=== PATIENT | female | born 1980 | race Caucasian/White ===

== ENCOUNTER 2020-07-24 14:25 | Emergency (ER) | payer MEDICAID ==
[~2020-07-24] VITALS: Ht 157.5 cm; Wt 72.0 kg
[2020-07-24] MEDS ORDERED: ACETAMINOPHEN WITH CODEINE 300/30MG TABLET PO ONE (14:45)
[2020-07-24 15:20] VITALS: BP 120/77
== END 2020-07-24 15:30 | disposition home or self-care (01) ==
LOC: ER 14:25
DX: R06.02 Shortness of breath (principal); R51 Headache
CPT/HCPCS: 71045; 99283

== ENCOUNTER 2020-07-25 12:29 | Inpatient (IN) | payer MEDICAID ==
[~2020-07-25] VITALS: Ht 142.2 cm; Wt 87.5 kg
[2020-07-25] MEDS ORDERED: ACETAMINOPHEN 325MG TABLET PO STA ×2 (13:01→14:56)
[2020-07-25] MEDS ORDERED: SODIUM CHLORIDE 0.9% 1,000 ML IV ONE (13:12)
[2020-07-25 14:29] LABS: BASOPHILS % 0.5 % (0.0-2.0); EOSINOPHILS % 0.5 % (0.0-5.0); HEMATOCRIT. 33.1 % (36.0-48.0); HEMOGLOBIN. 11.3 g/dL (12.0-16.0); LYMPHOCYTES % 33.6 % (20.0-50.0); MEAN CORPUSCULAR HEMOGLOBIN 33.1 pg (28.0-32.0); MEAN CORPUSCULAR VOLUME 97.1 fL (81.0-99.0); MEAN PLATELET VOLUME 8.8 fl (7.4-10.4); MONOCYTES % 8.4 % (2.0-8.0); PLATELET 219 x1000/uL (130-400); RED BLOOD CELL COUNT 3.41 mill/uL (4.2-5.4); RED CELL DISTRIBUTION WIDTH 13.7 % (11.6-14.6)
[2020-07-25 14:34] LABS: CHLORIDE 104 mEq/L (98-107)
[2020-07-25] MEDS ORDERED: CEFTRIAXONE 1 G PREMIX 50 ML IV ONE (15:00)
[2020-07-25] MEDS ORDERED: AZITHROMYCIN 500 MG in DEXT 5% WATER 250 ML IV ONE (15:00)
[2020-07-25] MEDS ORDERED: CEFTRIAXONE 1 G PREMIX 50 ML IV SCH (15:15)
[2020-07-25] MEDS ORDERED: AZITHROMYCIN 500 MG in DEXT 5% WATER 250 ML IV SCH (15:15)
[2020-07-25] MEDS ORDERED: ACETAMINOPHEN 325MG TABLET PO NR (21:15)
[2020-07-25] MEDS: ENOXAPARIN 40MG/0.4ML SYR SUBCUT SCH (21:18)
[2020-07-25 21:55] VITALS: BP_SYST 124; BP_SYST 126; BP_DIAS 67
[2020-07-26] VITALS (7 sets, daily range): BP systolic 96–127; BP diastolic 51–79
[2020-07-26] MEDS: ALBUTEROL 6.7GM HFA INHALER ORI PRN ×3 (00:34→23:28)
[2020-07-26] MEDS: ACETAMINOPHEN 325MG TABLET PO PRN ×3 (00:35→16:57)
[2020-07-26 04:57] LABS: CHLORIDE 106 mEq/L (98-107)
[2020-07-26 05:07] LABS: BASOPHILS % 0.7 % (0.0-2.0); EOSINOPHILS % 0.9 % (0.0-5.0); HEMATOCRIT. 31.2 % (36.0-48.0); HEMOGLOBIN. 10.6 g/dL (12.0-16.0); LYMPHOCYTES % 42.7 % (20.0-50.0); MEAN CORPUSCULAR HEMOGLOBIN 32.7 pg (28.0-32.0); MEAN CORPUSCULAR VOLUME 96.6 fL (81.0-99.0); MEAN PLATELET VOLUME 8.6 fl (7.4-10.4); MONOCYTES % 7.9 % (2.0-8.0); NEUTROPHILS % 47.8 % (40.0-76.0); PLATELET 210 x1000/uL (130-400); RED BLOOD CELL COUNT 3.24 mill/uL (4.2-5.4); RED CELL DISTRIBUTION WIDTH 13.5 % (11.6-14.6)
[2020-07-26] MEDS: CEFTRIAXONE 1,000 MG in DEXTROSE 5% WATER 50 ML IV SCH (08:33)
[2020-07-26] MEDS: AZITHROMYCIN 500 MG in DEXT 5% WATER 250 ML IV SCH (09:07)
[2020-07-26] MEDS ORDERED: CEFTRIAXONE 1 G PREMIX 50 ML IV SCH (15:00)
[2020-07-26] MEDS ORDERED: AZITHROMYCIN 500 MG in DEXT 5% WATER 250 ML IV SCH (15:00)
[2020-07-26] MEDS: ENOXAPARIN 40MG/0.4ML SYR SUBCUT SCH (20:08)
[2020-07-27] MEDS ORDERED: GUAIFENESIN-DM 200MG-20MG/10ML UDC PO PRN
[2020-07-27] MEDS: GUAIFENESIN 600MG ER TABLET PO SCH ×3 (00:10→20:01)
[2020-07-27] MEDS: DEXAMETHASONE 10 MG/ML VIAL IV SCH ×2 (00:10→05:47)
[2020-07-27] MEDS ORDERED: ENOXAPARIN 60MG/0.6ML SYR SUBCUT NR ×2 (00:45→05:15)
[2020-07-27 04:00] VITALS: BP 113/64
[2020-07-27 08:00] VITALS: BP 109/67
[2020-07-27] MEDS: CEFTRIAXONE 1,000 MG in DEXTROSE 5% WATER 50 ML IV SCH (08:44)
[2020-07-27] MEDS: AZITHROMYCIN 500 MG in DEXT 5% WATER 250 ML IV SCH (09:34)
[2020-07-27 12:00] VITALS: BP 122/83
[2020-07-27] MEDS ORDERED: ENOXAPARIN 100MG/ML SYR SUBCUT SCH (12:00)
[2020-07-27] MEDS ORDERED: REMDESIVIR 200 MG in SODIUM CHLORIDE 0.9% 250 ML IV SCH (13:00)
[2020-07-27 16:00] VITALS: BP 107/62
[2020-07-27] MEDS: BENZONATATE 100MG CAPSULE PO SCH ×2 (16:40→23:44)
[2020-07-27] MEDS: ENOXAPARIN 100MG/ML SYR SUBCUT SCH (17:26)
[2020-07-27 20:00] VITALS: BP 112/68
[2020-07-27] MEDS: ACETAMINOPHEN 325MG TABLET PO PRN (23:44)
[2020-07-28 00:11] VITALS: BP 111/68
[2020-07-28 04:00] VITALS: BP 103/61
[2020-07-28] MEDS: ENOXAPARIN 100MG/ML SYR SUBCUT SCH ×2 (05:43→17:01)
[2020-07-28 06:30] LABS: BASOPHILS % 0.1 % (0.0-2.0); CHLORIDE 107 mEq/L (98-107); EOSINOPHILS % 0.1 % (0.0-5.0); HEMATOCRIT. 32.4 % (36.0-48.0); HEMOGLOBIN. 11.1 g/dL (12.0-16.0); LYMPHOCYTES % 17.7 % (20.0-50.0); MEAN CORPUSCULAR HEMOGLOBIN 32.8 pg (28.0-32.0); MEAN CORPUSCULAR VOLUME 95.8 fL (81.0-99.0); MEAN PLATELET VOLUME 8.4 fl (7.4-10.4); MONOCYTES % 6.7 % (2.0-8.0); NEUTROPHILS % 75.4 % (40.0-76.0); PLATELET 310 x1000/uL (130-400); RED BLOOD CELL COUNT 3.38 mill/uL (4.2-5.4); RED CELL DISTRIBUTION WIDTH 13.6 % (11.6-14.6)
[2020-07-28 08:00] VITALS: BP 115/67
[2020-07-28] MEDS: BENZONATATE 100MG CAPSULE PO SCH ×3 (08:03→23:49)
[2020-07-28] MEDS: GUAIFENESIN 600MG ER TABLET PO SCH ×2 (08:45→19:43)
[2020-07-28] MEDS: AZITHROMYCIN 500 MG in DEXT 5% WATER 250 ML IV SCH (08:45)
[2020-07-28] MEDS: DEXAMETHASONE 10 MG/ML VIAL IV SCH (08:45)
[2020-07-28] MEDS: CEFTRIAXONE 1,000 MG in DEXTROSE 5% WATER 50 ML IV SCH (08:45)
[2020-07-28 12:00] VITALS: BP 109/65
[2020-07-28] MEDS: REMDESIVIR 100 MG in SODIUM CHLORIDE 0.9% 250 ML IV SCH (13:29)
[2020-07-28 16:00] VITALS: BP 116/63
[2020-07-28] MEDS ORDERED: POTASSIUM CHLORIDE 20MEQ TABLET SR PO NR (17:45)
[2020-07-28 20:00] VITALS: BP 104/52
[2020-07-29] VITALS: BP 102/66
[2020-07-29 04:00] VITALS: BP 100/60
[2020-07-29] MEDS: ENOXAPARIN 100MG/ML SYR SUBCUT SCH ×2 (05:14→17:08)
[2020-07-29 07:45] VITALS: BP 110/62
[2020-07-29] MEDS: BENZONATATE 100MG CAPSULE PO SCH ×3 (07:47→23:49)
[2020-07-29] MEDS: CEFTRIAXONE 1,000 MG in DEXTROSE 5% WATER 50 ML IV SCH (08:52)
[2020-07-29] MEDS: GUAIFENESIN 600MG ER TABLET PO SCH ×2 (08:52→20:52)
[2020-07-29] MEDS: DEXAMETHASONE 10 MG/ML VIAL IV SCH (08:52)
[2020-07-29] MEDS: AZITHROMYCIN 500 MG in DEXT 5% WATER 250 ML IV SCH (09:35)
[2020-07-29 10:00] LABS: PROTHROMBIN TIME 10.9 sec (9.6-11.0)
[2020-07-29 12:00] VITALS: BP 115/60
[2020-07-29] MEDS: REMDESIVIR 100 MG in SODIUM CHLORIDE 0.9% 250 ML IV SCH (12:52)
[2020-07-29 16:00] VITALS: BP 107/62
[2020-07-29] MEDS ORDERED: POTASSIUM CHLORIDE 20MEQ TABLET SR PO NR (16:45)
[2020-07-29 20:00] VITALS: BP 103/54
[2020-07-30] VITALS: BP 115/56
[2020-07-30 04:00] VITALS: BP 115/39
[2020-07-30] MEDS: ENOXAPARIN 100MG/ML SYR SUBCUT SCH ×2 (05:40→17:00)
[2020-07-30 08:00] VITALS: BP 97/58
[2020-07-30] MEDS: BENZONATATE 100MG CAPSULE PO SCH ×2 (08:13→16:58)
[2020-07-30] MEDS: DEXAMETHASONE 10 MG/ML VIAL IV SCH (08:13)
[2020-07-30] MEDS: GUAIFENESIN 600MG ER TABLET PO SCH ×2 (08:13→22:36)
[2020-07-30] MEDS: CEFTRIAXONE 1,000 MG in DEXTROSE 5% WATER 50 ML IV SCH (08:14)
[2020-07-30 12:00] VITALS: BP 96/51
[2020-07-30] MEDS ORDERED: IOHEXOL-300 100 ML BOTTLE ONE (12:04)
[2020-07-30] MEDS: REMDESIVIR 100 MG in SODIUM CHLORIDE 0.9% 250 ML IV SCH (12:48)
[2020-07-30 16:00] VITALS: BP 101/52
[2020-07-30 20:00] VITALS: BP 108/62
[2020-07-31] VITALS: BP 126/72
[2020-07-31] MEDS: BENZONATATE 100MG CAPSULE PO SCH ×3 (01:01→17:46)
[2020-07-31 04:00] VITALS: BP 101/60
[2020-07-31] MEDS: ENOXAPARIN 100MG/ML SYR SUBCUT SCH ×2 (05:05→18:00)
[2020-07-31 08:00] VITALS: BP 105/59
[2020-07-31] MEDS: GUAIFENESIN 600MG ER TABLET PO SCH (08:55)
[2020-07-31] MEDS ORDERED: DEXAMETHASONE 2MG TABLET PO SCH (09:00)
[2020-07-31 12:00] VITALS: BP 99/58
[2020-07-31] MEDS: REMDESIVIR 100 MG in SODIUM CHLORIDE 0.9% 250 ML IV SCH (13:07)
[2020-07-31 16:00] VITALS: BP 100/64
== END 2020-07-31 18:10 | disposition home or self-care (01) | DRG 720 ==
LOC: ER 12:29 → EDBEDREQ 15:23 → 7WST 17:53 → ENRESERV 20:43
PROVIDERS: ADMIT Internal Medicine; ATTEND Internal Medicine
PROC: XW033E5 Introduction of Remdesivir Anti-infective into Peripheral Vein, Percutaneous Approach, New Technology Group 5 (ICD-10-PCS; principal; 2020-07-27)
DX: A41.89 Other specified sepsis (principal); U07.1 COVID-19; J96.00 Acute respiratory failure, unspecified whether with hypoxia or hypercapnia; J12.89 Other viral pneumonia; M94.0 Chondrocostal junction syndrome [Tietze]; B97.89 Other viral agents as the cause of diseases classified elsewhere
CPT/HCPCS: 36415; 71045; 80053; 82728; 83735; 83880; 84484; 85025; 85379; 87635; 93005; 99285; J0456; J0696; J1100; J1650; J7030; J7050; J7060; J8540; Q9957; Q9967

== ENCOUNTER 2020-10-22 11:24 | Emergency (ER) | payer MEDICAID ==
[~2020-10-22] VITALS: Ht 165.1 cm; Wt 89.0 kg
[2020-10-22] MEDS ORDERED: KETOROLAC 30MG/ML VIAL IV STA (11:30)
[2020-10-22 12:26] LABS: BASOPHILS % 1.9 % (0.0-2.0); EOSINOPHILS % 1.5 % (0.0-5.0); HEMATOCRIT. 36.6 % (36.0-48.0); HEMOGLOBIN. 12.5 g/dL (12.0-16.0); LYMPHOCYTES % 40.4 % (20.0-50.0); MEAN CORPUSCULAR VOLUME 96.6 fL (81.0-99.0); MEAN PLATELET VOLUME 8.6 fl (7.4-10.4); MONOCYTES % 7.1 % (2.0-8.0); NEUTROPHILS % 49.1 % (40.0-76.0); PLATELET 169 x1000/uL (130-400); RED BLOOD CELL COUNT 3.79 mill/uL (4.2-5.4); RED CELL DISTRIBUTION WIDTH 14.8 % (11.6-14.6)
[2020-10-22 12:30] LABS: CHLORIDE 102 mEq/L (98-107)
[2020-10-22 12:32] LABS: INR 1.2; PROTHROMBIN TIME 12.6 sec (9.6-11.0)
[2020-10-22 12:35] LABS: C REACTIVE PROTEIN QUANT < 0.2 mg/L (0.0-3.0)
[2020-10-22 12:37] LABS: CLARITY URINE CLOUDY (CLEAR); COLOR URINE YELLOW (YELLOW); KETONES URINE NEGATIVE (NEGATIVE); LEUKOCYTE ESTERASE URINE NEGATIVE (NEGATIVE); NITRITE URINE NEGATIVE (NEGATIVE); OCCULT BLOOD URINE NEGATIVE (NEGATIVE); PH URINE 7.5 (4.5-8.0); PROTEIN URINE TRACE (NEGATIVE); SPECIFIC GRAVITY URINE 1.025 (1.005-1.030)
[2020-10-22 12:41] LABS: CREATINE KINASE 386 IU/L (26-192)
[2020-10-22 12:47] LABS: HCG SCREEN NEGATIVE
[2020-10-22] MEDS ORDERED: ALBUTEROL 6.7GM HFA INHALER ORI ONE (13:45)
[2020-10-22] MEDS ORDERED: ONDANSETRON HCL 4MG/2ML INJ IV NR (15:00)
[2020-10-22] MEDS ORDERED: MAGNESIUM/ALUMINUM HYDROXIDE/SIMETHICONE 30ML UDC PO NR (15:00)
[2020-10-22 19:33] VITALS: BP 140/72
== END 2020-10-22 19:35 | disposition home or self-care (01) ==
LOC: ER 11:24 → CANBEDREQ 20:07
DX: U07.1 COVID-19 (principal); B34.9 Viral infection, unspecified; Z98.890 Other specified postprocedural states
CPT/HCPCS: 36415; 71045; 80053; 81003; 82550; 82728; 83605; 83615; 83880; 84145; 84484; 84703; 85025; 85384; 85610; 86140; 87040; 87086; 87186; 93005; 94640; 96374; 96375; 99285; C9803; J1885; J2405; U0003

== ENCOUNTER 2020-11-22 06:06 | Inpatient (IN) | payer MEDICAID ==
[~2020-11-22] VITALS: Ht 152.4 cm; Wt 86.2 kg
[2020-11-22] MEDS ORDERED: ONDANSETRON HCL 4MG/2ML INJ IV STA (06:58)
[2020-11-22] MEDS ORDERED: FAMOTIDINE 20MG/2ML VIAL IV STA (06:58)
[2020-11-22] MEDS ORDERED: MORPHINE SULFATE 4 MG/ML CPJ (NOT FOR IM USE) IV STA (06:58)
[2020-11-22] MEDS ORDERED: VISCOUS LIDOCAINE 2% 15 ML UDC PO STA (06:58)
[2020-11-22] MEDS ORDERED: MAGNESIUM/ALUMINUM HYDROXIDE/SIMETHICONE 30ML UDC PO STA (06:58)
[2020-11-22] MEDS ORDERED: SODIUM CHLORIDE 0.9% 1,000 ML IV ONE (07:00)
[2020-11-22 07:21] LABS: CLARITY URINE CLOUDY (CLEAR); COLOR URINE ORANGE (YELLOW); KETONES URINE TRACE (NEGATIVE); LEUKOCYTE ESTERASE URINE TRACE (NEGATIVE); NITRITE URINE NEGATIVE (NEGATIVE); OCCULT BLOOD URINE 3+ (NEGATIVE); PROTEIN URINE TRACE (NEGATIVE); SPECIFIC GRAVITY URINE 1.016 (1.005-1.030)
[2020-11-22 07:25] LABS: BASOPHILS % 0.7 % (0.0-2.0); EOSINOPHILS % 2.2 % (0.0-5.0); HEMATOCRIT. 37.5 % (36.0-48.0); HEMOGLOBIN. 12.9 g/dL (12.0-16.0); LYMPHOCYTES % 44.2 % (20.0-50.0); MEAN CORPUSCULAR HEMOGLOBIN 32.8 pg (28.0-32.0); MEAN CORPUSCULAR VOLUME 95.5 fL (81.0-99.0); MEAN PLATELET VOLUME 9.5 fl (7.4-10.4); MONOCYTES % 6.1 % (2.0-8.0); NEUTROPHILS % 46.8 % (40.0-76.0); PLATELET 102 x1000/uL (130-400); RED BLOOD CELL COUNT 3.93 mill/uL (4.2-5.4); RED CELL DISTRIBUTION WIDTH 15.3 % (11.6-14.6)
[2020-11-22 07:30] LABS: HCG SCREEN NEGATIVE
[2020-11-22 07:41] LABS: CHLORIDE 97 mEq/L (98-107)
[2020-11-22] MEDS ORDERED: PIPERACILLIN/TAZ 3.375G PREMIX 50 ML IV ONE (08:15)
[2020-11-22] MEDS ORDERED: PIPERACILLIN/TAZOBACTAM 3.375 G in DEXT 5% WATER 100 ML IV ONE (09:30)
[2020-11-22 11:30] VITALS: BP 142/86
[2020-11-22] MEDS ORDERED: MORPHINE SULFATE 4 MG/ML CPJ (NOT FOR IM USE) IV PRN (13:15)
[2020-11-22] MEDS ORDERED: ONDANSETRON HCL 4MG/2ML INJ IV PRN (13:15)
[2020-11-22] MEDS ORDERED: DEXT 5%/0.45% NACL 1000ML 1,000 ML IV SCH (13:15)
[2020-11-22 16:00] VITALS: BP 134/80
[2020-11-22] MEDS ORDERED: KCL 20MEQ/100ML PREMIX 100 ML IV NR (16:00)
[2020-11-22 16:44] VITALS: BP 134/75
[2020-11-22 20:00] VITALS: BP 120/83
[2020-11-22] MEDS ORDERED: POTASSIUM CHLORIDE INJ 40 MEQ in DEXT 5% WATER 500 ML IV NR (21:00)
[2020-11-22] MEDS ORDERED: GUAIFENESIN 200MG/10ML SUGAR FREE UDC PO PRN (23:15)
[2020-11-22] MEDS: DEXT 5%/0.45% NACL KCL 40MEQ/L 1,000 ML IV SCH (23:46)
[2020-11-23] VITALS: BP 125/77
[2020-11-23 04:00] VITALS: BP 123/85
[2020-11-23 06:17] LABS: CHLORIDE 105 mEq/L (98-107); INR 1.1
[2020-11-23] MEDS: DEXT 5%/0.45% NACL KCL 40MEQ/L 1,000 ML IV SCH (06:28)
[2020-11-23 06:31] LABS: LDL CHOLESTEROL 65 mg/dL (5-100)
[2020-11-23 06:32] LABS: BASOPHILS % 0.9 % (0.0-2.0); EOSINOPHILS % 4.1 % (0.0-5.0); HDL CHOLESTEROL 25 mg/dL (40-59); HEMATOCRIT. 34.6 % (36.0-48.0); HEMOGLOBIN. 11.6 g/dL (12.0-16.0); MEAN CORPUSCULAR HEMOGLOBIN 32.4 pg (28.0-32.0); MEAN CORPUSCULAR VOLUME 97.1 fL (81.0-99.0); MEAN PLATELET VOLUME 10.1 fl (7.4-10.4); MONOCYTES % 7.6 % (2.0-8.0); NEUTROPHILS % 37.4 % (40.0-76.0); PLATELET 87 x1000/uL (130-400); RED BLOOD CELL COUNT 3.56 mill/uL (4.2-5.4); RED CELL DISTRIBUTION WIDTH 15.5 % (11.6-14.6)
[2020-11-23 06:42] LABS: FERRITIN 364 ng/mL (10-291)
[2020-11-23 06:53] LABS: HEPATITIS B SURFACE ANTIGEN NEGATIVE
[2020-11-23 06:54] LABS: VITAMIN B12 SERUM 1131 pg/mL (211-911)
[2020-11-23 07:23] LABS: HEPATITIS A AB IGM NEGATIVE (NEGATIVE)
[2020-11-23 08:00] VITALS: BP 122/73
[2020-11-23] MEDS ORDERED: PANTOPRAZOLE SODIUM 40 MG/VIAL IV SCH (09:00)
[2020-11-23 12:00] VITALS: BP 119/78
[2020-11-23 12:43] LABS: HEPATITIS B SURFACE AB < 3.1 mIU/mL
[2020-11-23 16:00] VITALS: BP 127/88
[2020-11-23 16:24] VITALS: BP 119/78
[2020-11-23] MEDS ORDERED: MAGNESIUM 1 G PREMIX 100 ML IV NR (17:30)
[2020-11-26 13:11] LABS: ACTIN (SMOOTH MUSCLE) ANTIBODY 6 Units (0-19)
[2020-11-26 14:12] LABS: ANA IFA Negative (.)
== END 2020-11-23 18:28 | disposition home or self-care (01) | DRG 241 ==
LOC: ER 06:06 → 6EST 08:49 → ENRESERV 09:41
PROVIDERS: ADMIT Internal Medicine; ATTEND Internal Medicine
DX: K29.61 Other gastritis with bleeding (principal); R10.9 Unspecified abdominal pain; K22.6 Gastro-esophageal laceration-hemorrhage syndrome; K20.91 Esophagitis, unspecified with bleeding; Z86.16 Personal history of COVID-19; Z20.822 Contact with and (suspected) exposure to COVID-19; E83.51 Hypocalcemia; E87.6 Hypokalemia; E87.1 Hypo-osmolality and hyponatremia; E88.09 Other disorders of plasma-protein metabolism, not elsewhere classified; D69.6 Thrombocytopenia, unspecified; D70.9 Neutropenia, unspecified; R19.7 Diarrhea, unspecified; K76.0 Fatty (change of) liver, not elsewhere classified; E83.42 Hypomagnesemia; K80.50 Calculus of bile duct without cholangitis or cholecystitis without obstruction; E78.1 Pure hyperglyceridemia; Z82.49 Family history of ischemic heart disease and other diseases of the circulatory system; Z56.0 Unemployment, unspecified
CPT/HCPCS: 36415; 71045; 74181; 76705; 80048; 80053; 80061; 80076; 81003; 82248; 82390; 82607; 82728; 82746; 83036; 83735; 84703; 85025; 85044; 86256; 86705; 86706; 86709; 86803; 87340; 96374; 99285; C9113; J2270; J2405; J2543; J3475; J3480; J3490; J7030; J7060

== ENCOUNTER 2021-02-25 05:52 | Emergency (ER) | payer MEDICAID ==
[~2021-02-25] VITALS: Ht 152.4 cm; Wt 84.0 kg
[2021-02-25] MEDS ORDERED: SODIUM CHLORIDE 0.9% 1,000 ML IV ONE (06:15)
[2021-02-25] MEDS ORDERED: MORPHINE SULFATE 4 MG/ML CPJ (NOT FOR IM USE) IV STA (06:18)
[2021-02-25] MEDS ORDERED: ONDANSETRON HCL 4MG/2ML INJ IV STA (06:18)
[2021-02-25 06:36] LABS: BASOPHILS % 1.1 % (0.0-2.0); EOSINOPHILS % 1.1 % (0.0-5.0); HEMATOCRIT. 35.8 % (36.0-48.0); HEMOGLOBIN. 12.1 g/dL (12.0-16.0); LYMPHOCYTES % 35.3 % (20.0-50.0); MEAN CORPUSCULAR HEMOGLOBIN 32.1 pg (28.0-32.0); MEAN CORPUSCULAR VOLUME 94.8 fL (81.0-99.0); MEAN PLATELET VOLUME 7.7 fl (7.4-10.4); MONOCYTES % 6.7 % (2.0-8.0); NEUTROPHILS % 55.8 % (40.0-76.0); PLATELET 254 x1000/uL (130-400); RED BLOOD CELL COUNT 3.77 mill/uL (4.2-5.4); RED CELL DISTRIBUTION WIDTH 15.1 % (11.6-14.6)
[2021-02-25 06:42] LABS: CHLORIDE 97 mEq/L (98-107)
[2021-02-25 06:56] LABS: CLARITY URINE CLEAR (CLEAR); COLOR URINE YELLOW (YELLOW); KETONES URINE NEGATIVE (NEGATIVE); LEUKOCYTE ESTERASE URINE NEGATIVE (NEGATIVE); NITRITE URINE NEGATIVE (NEGATIVE); OCCULT BLOOD URINE NEGATIVE (NEGATIVE); PROTEIN URINE NEGATIVE (NEGATIVE); SPECIFIC GRAVITY URINE 1.016 (1.005-1.030)
[2021-02-25] MEDS ORDERED: KCL 20MEQ/100ML PREMIX 100 ML IV ONE (08:00)
[2021-02-25] MEDS ORDERED: IOHEXOL-300 100 ML BOTTLE ONE (09:21)
[2021-02-25] MEDS ORDERED: ONDA4TAB5 MT (10:00)
[2021-02-25] MEDS ORDERED: IBUP-2029 MT (10:00)
[2021-02-25 15:30] VITALS: BP 128/80
== END 2021-02-25 15:30 | disposition home or self-care (01) ==
LOC: ER 05:52
DX: K75.81 Nonalcoholic steatohepatitis (NASH) (principal); E87.6 Hypokalemia; Z98.890 Other specified postprocedural states
CPT/HCPCS: 36415; 74177; 76705; 80053; 81003; 81025; 83690; 85025; 93005; 96361; 96365; 96366; 96375; 99285; J2270; J2405; J3480; J7030; Q9967; Z7610

== ENCOUNTER 2021-04-08 10:37 | Emergency (ER) | payer MEDICAID ==
[~2021-04-08] VITALS: Ht 157.5 cm; Wt 80.0 kg
[~2021-04-08 10:37] MED LIST: IBUP-2029 MT; ONDA4TAB5 MT
[2021-04-08 11:03] VITALS: BP 159/88
[2021-04-08] MEDS ORDERED: MORPHINE SULFATE 4 MG/ML CPJ (NOT FOR IM USE) IV STA (12:16)
[2021-04-08] MEDS ORDERED: FAMOTIDINE 20MG/2ML VIAL IV STA (12:16)
[2021-04-08] MEDS ORDERED: ONDANSETRON HCL 4MG/2ML INJ IV STA (12:16)
[2021-04-08 12:27] LABS: BASOPHILS % 0.8 % (0.0-2.0); EOSINOPHILS % 1.8 % (0.0-5.0); HEMATOCRIT. 36.5 % (36.0-48.0); HEMOGLOBIN. 12.6 g/dL (12.0-16.0); LYMPHOCYTES % 44.3 % (20.0-50.0); MEAN CORPUSCULAR HEMOGLOBIN 32.2 pg (28.0-32.0); MEAN PLATELET VOLUME 9.1 fl (7.4-10.4); MONOCYTES % 11.2 % (2.0-8.0); NEUTROPHILS % 41.9 % (40.0-76.0); PLATELET 157 x1000/uL (130-400); RED BLOOD CELL COUNT 3.93 mill/uL (4.2-5.4); RED CELL DISTRIBUTION WIDTH 14.7 % (11.6-14.6)
[2021-04-08 12:30] LABS: CHLORIDE 98 mEq/L (98-107)
[2021-04-08] MEDS ORDERED: SODIUM CHLORIDE 0.9% 1,000 ML IV ONE (12:30)
[2021-04-08 12:33] LABS: HCG SCREEN NEGATIVE
[2021-04-08 12:44] LABS: CLARITY URINE CLEAR (CLEAR); COLOR URINE YELLOW (YELLOW); KETONES URINE NEGATIVE (NEGATIVE); LEUKOCYTE ESTERASE URINE NEGATIVE (NEGATIVE); NITRITE URINE NEGATIVE (NEGATIVE); OCCULT BLOOD URINE NEGATIVE (NEGATIVE); PH URINE 6.5 (4.5-8.0); PROTEIN URINE NEGATIVE (NEGATIVE); SPECIFIC GRAVITY URINE 1.023 (1.005-1.030)
[2021-04-08 13:29] LABS: INR 1.4; PROTHROMBIN TIME 14.5 sec (9.6-11.0)
[2021-04-08] MEDS ORDERED: METOCLOPRAMIDE HCL 10MG/2ML VIAL IV NR (16:15)
[2021-04-08] MEDS ORDERED: MAGNESIUM/ALUMINUM HYDROXIDE/SIMETHICONE 30ML UDC PO NR (16:15)
[2021-04-08 16:53] LABS: HEPATITIS B SURFACE ANTIGEN NEGATIVE
[2021-04-08] MEDS ORDERED: PROT20 MT (17:13)
[2021-04-08 17:23] LABS: HEPATITIS A AB IGM NEGATIVE (NEGATIVE)
== END 2021-04-08 17:37 | disposition home or self-care (01) ==
LOC: ER 10:37
DX: R11.2 Nausea with vomiting, unspecified (principal); R10.11 Right upper quadrant pain; Z79.899 Other long term (current) drug therapy
CPT/HCPCS: 36415; 76705; 80053; 81003; 81025; 83690; 84703; 85025; 85610; 86705; 86709; 86803; 87340; 96361; 96374; 96375; 99284; J2270; J2405; J2765; J3490; J7030

== ENCOUNTER 2021-07-02 05:49 | Emergency (ER) | payer MEDICAID ==
[~2021-07-02] VITALS: Ht 167.6 cm; Wt 81.0 kg
[~2021-07-02 05:49] MED LIST changes: +PROT20 MT
[2021-07-02] MEDS ORDERED: ONDANSETRON HCL 4MG/2ML INJ IV STA (06:44)
[2021-07-02] MEDS ORDERED: MORPHINE SULFATE 4 MG/ML CPJ (NOT FOR IM USE) IV STA (06:44)
[2021-07-02] MEDS ORDERED: SODIUM CHLORIDE 0.9% 1,000 ML IV ONE (06:45)
[2021-07-02 08:13] LABS: BASOPHILS % 0.3 % (0.0-2.0); EOSINOPHILS % 0.5 % (0.0-5.0); HEMATOCRIT. 37.5 % (36.0-48.0); HEMOGLOBIN. 12.7 g/dL (12.0-16.0); LYMPHOCYTES % 14.8 % (20.0-50.0); MEAN CORPUSCULAR HEMOGLOBIN 32.3 pg (28.0-32.0); MEAN PLATELET VOLUME 8.6 fl (7.4-10.4); MONOCYTES % 5.1 % (2.0-8.0); NEUTROPHILS % 79.3 % (40.0-76.0); PLATELET 325 x1000/uL (130-400); RED BLOOD CELL COUNT 3.95 mill/uL (4.2-5.4); RED CELL DISTRIBUTION WIDTH 14.6 % (11.6-14.6)
[2021-07-02 08:18] LABS: CHLORIDE 100 mEq/L (98-107)
[2021-07-02] MEDS ORDERED: IOHEXOL-300 100 ML BOTTLE ONE (10:32)
[2021-07-02] MEDS ORDERED: IBUP-2028 MT (13:33)
[2021-07-02] MEDS ORDERED: IBUPROFEN 400MG TABLET PO ONE (14:30)
[2021-07-02 14:34] VITALS: BP 133/83
== END 2021-07-02 14:57 | disposition home or self-care (01) ==
LOC: ER 05:49
DX: R10.9 Unspecified abdominal pain (principal); D25.9 Leiomyoma of uterus, unspecified
CPT/HCPCS: 36415; 71045; 74177; 76856; 80053; 81025; 83690; 85025; 93005; 96361; 96374; 96375; 99285; J2270; J2405; J7030; Q9967

== ENCOUNTER 2022-03-28 11:46 | Emergency (ER) | payer MEDICAID ==
[~2022-03-28] VITALS: Ht 162.6 cm; Wt 75.0 kg
[~2022-03-28 11:46] MED LIST changes: +IBUP-2028 MT
[2022-03-28] MEDS ORDERED: IBUPROFEN 600MG TABLET PO ONE (13:00)
[2022-03-28 13:07] VITALS: BP 153/102
== END 2022-03-28 14:20 | disposition left against medical advice (07) ==
LOC: ER 11:57
DX: M25.561 Pain in right knee (principal); W01.0XXA Fall on same level from slipping, tripping and stumbling without subsequent striking against object, initial encounter; Y93.9 Activity, unspecified; Y92.9 Unspecified place or not applicable; Z98.51 Tubal ligation status
CPT/HCPCS: 99282

== ENCOUNTER 2022-08-02 12:41 | Inpatient (IN) | payer MEDICAID ==
[~2022-08-02] VITALS: Ht 167.6 cm; Wt 83.5 kg
[2022-08-02] MEDS ORDERED: ONDANSETRON HCL 4MG/2ML INJ IV STA (13:19)
[2022-08-02] MEDS ORDERED: MAGNESIUM/ALUMINUM HYDROXIDE/SIMETHICONE 30ML UDC PO STA ×2 (13:19)
[2022-08-02] MEDS ORDERED: MORPHINE SULFATE 4 MG/ML CPJ (NOT FOR IM USE) IV STA (13:19)
[2022-08-02] MEDS ORDERED: VISCOUS LIDOCAINE 2% 15 ML UDC PO STA (13:19)
[2022-08-02] MEDS ORDERED: PANTOPRAZOLE SODIUM 40 MG/VIAL IV ONE (13:30)
[2022-08-02] MEDS ORDERED: CEFTRIAXONE 1 G PREMIX 50 ML IV ONE (13:45)
[2022-08-02 14:04] LABS: BASOPHILS % 0.3 % (0.0-2.0); EOSINOPHILS % 0.1 % (0.0-5.0); HEMATOCRIT. 27.6 % (36.0-48.0); HEMOGLOBIN. 9.4 g/dL (12.0-16.0); MEAN CORPUSCULAR HEMOGLOBIN 35.1 pg (28.0-32.0); MEAN CORPUSCULAR VOLUME 103.1 fL (81.0-99.0); NEUTROPHILS % 74.6 % (40.0-76.0); PLATELET 88 x1000/uL (130-400); RED BLOOD CELL COUNT 2.68 mill/uL (4.2-5.4); RED CELL DISTRIBUTION WIDTH 16.3 % (11.6-14.6)
[2022-08-02 14:10] LABS: INR 1.3; PROTHROMBIN TIME 13.7 sec (9.6-11.0)
[2022-08-02 14:13] LABS: CHLORIDE 98 mEq/L (98-107)
[2022-08-02 14:14] LABS: HCG SCREEN NEGATIVE
[2022-08-02 14:20] LABS: ETHANOL BLOOD < 10 mg/dL
[2022-08-02] MEDS ORDERED: KCL 20MEQ/100ML PREMIX 100 ML IV ONE (15:30)
[2022-08-02 15:51] LABS: HEMATOCRIT 25.2 % (36.0-48.0); HEMOGLOBIN 8.5 g/dL (12.0-16.0)
[2022-08-02] MEDS ORDERED: SODIUM CHLORIDE 0.9% 1,000 ML IV SCH ×2 (16:45→18:30)
[2022-08-02] MEDS ORDERED: ACETAMINOPHEN 325MG TABLET PO SCH (16:46)
[2022-08-02 17:15] VITALS: BP 123/54
[2022-08-02] MEDS: ONDANSETRON HCL 4MG/2ML INJ IV PRN ×2 (18:12→22:51)
[2022-08-02 18:30] LABS: HEMATOCRIT 26.5 % (36.0-48.0)
[2022-08-02] MEDS: POTASSIUM CHLORIDE 20MEQ TABLET SR PO NR ×2 (18:47→21:50)
[2022-08-02 18:51] LABS: CHLORIDE 101 mEq/L (98-107)
[2022-08-02 20:00] VITALS: BP 120/76
[2022-08-02 21:09] VITALS: BP 123/52
[2022-08-02 21:24] VITALS: BP 106/74
[2022-08-02] MEDS: DEXT 5%/0.45% NACL 1000ML 1,000 ML IV SCH (21:49)
[2022-08-02] MEDS: ACETAMINOPHEN 325MG TABLET PO PRN (21:49)
[2022-08-02] MEDS: SUCRALFATE 1 G/10 ML UDC PO SCH (21:50)
[2022-08-03] VITALS (18 sets, daily range): BP systolic 104–126; BP diastolic 61–78
[2022-08-03] MEDS: METOCLOPRAMIDE HCL 10MG/2ML VIAL IV SCH ×5 (00:06→23:38)
[2022-08-03 01:07] LABS: HEMATOCRIT 23.2 % (36.0-48.0); HEMOGLOBIN 7.8 g/dL (12.0-16.0)
[2022-08-03] MEDS: ONDANSETRON HCL 4MG/2ML INJ IV PRN ×2 (03:53→21:24)
[2022-08-03] MEDS: ACETAMINOPHEN 325MG TABLET PO PRN ×2 (03:54→21:25)
[2022-08-03] MEDS: DEXT 5%/0.45% NACL 1000ML 1,000 ML IV SCH ×2 (05:19→08:14)
[2022-08-03 05:46] LABS: CHLORIDE 102 mEq/L (98-107)
[2022-08-03 05:53] LABS: TOTAL IRON BINDING CAPACITY 235 ug/dL (250-450)
[2022-08-03 05:57] LABS: INR 1.2
[2022-08-03 06:06] LABS: FERRITIN 518 ng/mL (10-291)
[2022-08-03 07:10] LABS: BASOPHILS % 0.5 % (0.0-2.0); EOSINOPHILS % 0.5 % (0.0-5.0); HEMOGLOBIN. 7.4 g/dL (12.0-16.0); LYMPHOCYTES % 28.6 % (20.0-50.0); MEAN CORPUSCULAR HEMOGLOBIN 35.3 pg (28.0-32.0); MEAN CORPUSCULAR VOLUME 104.6 fL (81.0-99.0); MEAN PLATELET VOLUME 11.7 fl (7.4-10.4); MONOCYTES % 5.9 % (2.0-8.0); NEUTROPHILS % 64.5 % (40.0-76.0); PLATELET 81 x1000/uL (130-400); RED CELL DISTRIBUTION WIDTH 16.4 % (11.6-14.6)
[2022-08-03] MEDS: SUCRALFATE 1 G/10 ML UDC PO SCH ×6 (07:30→21:23)
[2022-08-03] MEDS: PANTOPRAZOLE SODIUM 40 MG/VIAL IV SCH ×2 (07:39→19:07)
[2022-08-03 11:01] LABS: HEMATOCRIT 18.7 % (36.0-48.0); HEMOGLOBIN 6.2 g/dL (12.0-16.0)
[2022-08-03 11:14] LABS: HEPATITIS B SURFACE ANTIGEN NEGATIVE
[2022-08-03] MEDS: LACTULOSE 20G/30ML UDC PO SCH ×2 (14:50→21:24)
[2022-08-03 15:12] LABS: VITAMIN B12 SERUM 810 pg/mL (211-911)
[2022-08-03 16:40] LABS: HEMATOCRIT 24.3 % (36.0-48.0); HEMOGLOBIN 8.1 g/dL (12.0-16.0)
[2022-08-03] MEDS ORDERED: PROPOFOL 200MG/20ML VIAL IV ONE ×2 (17:11→17:26)
[2022-08-03] MEDS ORDERED: MIDAZOLAM HCL 2 MG/2 ML VIAL ONE (17:19)
[2022-08-03 19:44] LABS: HEMATOCRIT 27.5 % (36.0-48.0); HEMOGLOBIN 9.1 g/dL (12.0-16.0)
[2022-08-04] VITALS (12 sets, daily range): BP systolic 94–113; BP diastolic 46–66
[2022-08-04 01:08] LABS: HEMATOCRIT 22.5 % (36.0-48.0); HEMOGLOBIN 7.6 g/dL (12.0-16.0)
[2022-08-04] MEDS: DEXT 5%/0.45% NACL 1000ML 1,000 ML IV SCH ×2 (02:59→11:51)
[2022-08-04] MEDS: ONDANSETRON HCL 4MG/2ML INJ IV PRN ×4 (02:59→21:23)
[2022-08-04] MEDS: LACTULOSE 20G/30ML UDC PO SCH ×3 (05:51→21:23)
[2022-08-04] MEDS: PANTOPRAZOLE SODIUM 40 MG/VIAL IV SCH ×2 (05:51→17:42)
[2022-08-04] MEDS: METOCLOPRAMIDE HCL 10MG/2ML VIAL IV SCH ×3 (05:53→17:42)
[2022-08-04] MEDS: SUCRALFATE 1 G/10 ML UDC PO SCH ×4 (08:58→21:23)
[2022-08-04] MEDS: FOLIC ACID 1MG TABLET PO SCH (14:41)
[2022-08-04] MEDS: THIAMINE HCL 100MG TABLET PO SCH (14:41)
[2022-08-04] MEDS: MULTIVITAMINS,THER W-MINERALS TABLET PO SCH (14:41)
[2022-08-04 16:07] LABS: HEMOGLOBIN 8.3 g/dL (12.0-16.0)
[2022-08-04] MEDS: FERROUS SULFATE 325MG TABLET PO SCH (17:41)
[2022-08-04] MEDS: ACETAMINOPHEN 325MG TABLET PO PRN (18:24)
[2022-08-05] VITALS (17 sets, daily range): BP systolic 102–121; BP diastolic 63–80
[2022-08-05] MEDS: METOCLOPRAMIDE HCL 10MG/2ML VIAL IV SCH ×5 (00:12→23:59)
[2022-08-05] MEDS: ACETAMINOPHEN 325MG TABLET PO PRN (00:13)
[2022-08-05] MEDS: DEXT 5%/0.45% NACL 1000ML 1,000 ML IV SCH ×3 (03:00→20:53)
[2022-08-05] MEDS: PANTOPRAZOLE SODIUM 40 MG/VIAL IV SCH ×2 (05:35→17:19)
[2022-08-05] MEDS: LACTULOSE 20G/30ML UDC PO SCH ×3 (05:35→20:52)
[2022-08-05 06:11] LABS: CHLORIDE 109 mEq/L (98-107)
[2022-08-05 06:14] LABS: BASOPHILS % 1.2 % (0.0-2.0); EOSINOPHILS % 3.1 % (0.0-5.0); LYMPHOCYTES % 39.6 % (20.0-50.0); MEAN CORPUSCULAR HEMOGLOBIN 33.7 pg (28.0-32.0); MEAN CORPUSCULAR VOLUME 100.9 fL (81.0-99.0); MEAN PLATELET VOLUME 10.3 fl (7.4-10.4); MONOCYTES % 7.6 % (2.0-8.0); NEUTROPHILS % 48.5 % (40.0-76.0); PLATELET 96 x1000/uL (130-400); RED BLOOD CELL COUNT 1.95 mill/uL (4.2-5.4)
[2022-08-05 06:47] LABS: HEMATOCRIT. 19.7 % (36.0-48.0); HEMOGLOBIN. 6.6 g/dL (12.0-16.0)
[2022-08-05] MEDS: THIAMINE HCL 100MG TABLET PO SCH (08:29)
[2022-08-05] MEDS: SUCRALFATE 1 G/10 ML UDC PO SCH ×4 (08:29→20:53)
[2022-08-05] MEDS: FOLIC ACID 1MG TABLET PO SCH (08:29)
[2022-08-05] MEDS: FERROUS SULFATE 325MG TABLET PO SCH ×3 (08:29→17:19)
[2022-08-05] MEDS: MULTIVITAMINS,THER W-MINERALS TABLET PO SCH (08:30)
[2022-08-05] MEDS ORDERED: POTASSIUM CHLORIDE 20MEQ TABLET SR PO NR (10:15)
[2022-08-05] MEDS ORDERED: POTASSIUM CHLORIDE INJ 40 MEQ in DEXT 5% WATER 250 ML IV ONE (10:15)
[2022-08-05] MEDS: KCL 20MEQ/100ML X 2 FOR TOTAL KCL 40MEQ/200ML IV SCH ×2 (14:07→15:55)
[2022-08-06] VITALS (7 sets, daily range): BP systolic 106–121; BP diastolic 62–77
[2022-08-06] MEDS: DEXT 5%/0.45% NACL 1000ML 1,000 ML IV SCH (03:07)
[2022-08-06] MEDS: PANTOPRAZOLE SODIUM 40 MG/VIAL IV SCH (05:23)
[2022-08-06] MEDS: LACTULOSE 20G/30ML UDC PO SCH ×2 (05:23→12:57)
[2022-08-06] MEDS: METOCLOPRAMIDE HCL 10MG/2ML VIAL IV SCH ×3 (05:24→17:25)
[2022-08-06 06:50] LABS: BASOPHILS % 1.5 % (0.0-2.0); EOSINOPHILS % 3.5 % (0.0-5.0); HEMATOCRIT. 27.7 % (36.0-48.0); HEMOGLOBIN. 9.3 g/dL (12.0-16.0); LYMPHOCYTES % 33.8 % (20.0-50.0); MEAN CORPUSCULAR HEMOGLOBIN 32.2 pg (28.0-32.0); MEAN CORPUSCULAR VOLUME 96.4 fL (81.0-99.0); MEAN PLATELET VOLUME 9.7 fl (7.4-10.4); MONOCYTES % 9.7 % (2.0-8.0); NEUTROPHILS % 51.5 % (40.0-76.0); PLATELET 143 x1000/uL (130-400); RED BLOOD CELL COUNT 2.87 mill/uL (4.2-5.4); RED CELL DISTRIBUTION WIDTH 21.1 % (11.6-14.6)
[2022-08-06 07:10] LABS: CHLORIDE 110 mEq/L (98-107)
[2022-08-06] MEDS: MULTIVITAMINS,THER W-MINERALS TABLET PO SCH (08:53)
[2022-08-06] MEDS: FERROUS SULFATE 325MG TABLET PO SCH ×3 (08:53→17:24)
[2022-08-06] MEDS: FOLIC ACID 1MG TABLET PO SCH (08:53)
[2022-08-06] MEDS: SUCRALFATE 1 G/10 ML UDC PO SCH ×3 (08:53→17:24)
[2022-08-06] MEDS: THIAMINE HCL 100MG TABLET PO SCH (08:53)
[2022-08-06] MEDS ORDERED: POTASSIUM CHLORIDE 20MEQ TABLET SR PO NR (16:15)
== END 2022-08-06 18:05 | disposition left against medical advice (07) | DRG 241 ==
LOC: ER 12:51 → EDBEDREQ 14:30 → 8WST 15:17 → EDBEDREQ 15:25 → ENRESERV 16:08 → 5EST 20:01
PROVIDERS: ADMIT Internal Medicine; ATTEND Internal Medicine
PROC: 0DB78ZX Excision of Stomach, Pylorus, Via Natural or Artificial Opening Endoscopic, Diagnostic (ICD-10-PCS; principal; 2022-08-03)
PROC: 30233N1 Transfusion of Nonautologous Red Blood Cells into Peripheral Vein, Percutaneous Approach (ICD-10-PCS; 2022-08-03)
DX: K29.71 Gastritis, unspecified, with bleeding (principal); E44.1 Mild protein-calorie malnutrition; E72.20 Disorder of urea cycle metabolism, unspecified; E87.1 Hypo-osmolality and hyponatremia; R16.0 Hepatomegaly, not elsewhere classified; K76.0 Fatty (change of) liver, not elsewhere classified; D53.9 Nutritional anemia, unspecified; E87.6 Hypokalemia; R74.01 Elevation of levels of liver transaminase levels; R00.0 Tachycardia, unspecified; K92.1 Melena; E53.8 Deficiency of other specified B group vitamins; F41.9 Anxiety disorder, unspecified; F10.20 Alcohol dependence, uncomplicated; Z20.822 Contact with and (suspected) exposure to COVID-19; Z53.29 Procedure and treatment not carried out because of patient's decision for other reasons; Z68.29 Body mass index [BMI] 29.0-29.9, adult; Z98.51 Tubal ligation status; Z79.899 Other long term (current) drug therapy; Z86.16 Personal history of COVID-19; Z82.49 Family history of ischemic heart disease and other diseases of the circulatory system; K22.6 Gastro-esophageal laceration-hemorrhage syndrome
CPT/HCPCS: 36415; 74176; 76700; 80048; 80053; 80076; 80320; 82140; 82248; 82270; 82607; 82728; 82746; 82962; 83540; 83550; 84132; 84703; 85014; 85018; 85025; 85044; 86705; 86709; 86803; 86850; 86900; 86920; 87340; 87426; 88305; 88312; 88313; 88341; 93005; 93970; 99285; C9113; J0696; J2250; J2270; J2405; J2704; J2765; J3480; P9016; G0480

== ENCOUNTER 2023-02-08 14:23 | Emergency (ER) | payer MEDICAID ==
[~2023-02-08] VITALS: Ht 157.5 cm; Wt 82.0 kg
[2023-02-08 15:05] VITALS: BP 145/89
[2023-02-08] MEDS ORDERED: ACETAMINOPHEN 325MG TABLET PO ONE (17:45)
[2023-02-08] MEDS ORDERED: TOPUD MT (19:20)
== END 2023-02-08 19:39 | disposition home or self-care (01) ==
LOC: ER 14:45
DX: B34.9 Viral infection, unspecified (principal); Z98.51 Tubal ligation status; Z20.822 Contact with and (suspected) exposure to COVID-19
CPT/HCPCS: 71045; 81025; 87070; 87426; 87430; 87804; 99284; C9803